=== PATIENT | male | born 1970 | race Caucasian/White ===

== ENCOUNTER 2023-09-14 04:23 | Outpatient (CLI) | payer OTHER, SELFPAY ==
[2023-09-14 16:04] LABS: HCT 47.3 % (40.0-50.0); HGB 15.8 g/dL (13.5-17.5); MCH 31.2 pg (27.0-33.0); MCHC 33.4 % (32.0-36.0); MCV 94 fL (80-95); MPV 9.7 fL (8.0-11.0); Platelet Count 285 10^3/uL (130-400); RBC 5.06 10^6/uL (4.36-5.78); RDW 13.9 % (11.8-14.1); RDW-SD 47.5 fL; WBC 7.11 10^3/uL (4.4-10.8)
[2023-09-14 16:42] LABS: Anion Gap 9.9 mmol/L (3-11); BUN 12 mg/dL (7-18); CO2 28.1 mmol/L (21.0-32.0); CREATININE 1.1 mg/dL (0.70-1.30); Calcium 9.2 mg/dL (8.5-10.1); Chloride 106 mmol/L (98-107); Estimated GFR 79.77 (mL/min/1.73m2); Glucose 86 mg/dL (74-106); Potassium 4.3 mmol/L (3.5-5.1); Sodium 144 mmol/L (136-145)
== END 2023-09-14 04:24 | disposition home or self-care (01) ==
LOC: LBO 04:24
PROVIDERS: PCP Family Medicine; Visit Provider Student in an Organized Health Care Education/Training Program
DX: M16.12 Unilateral primary osteoarthritis, left hip (principal); Z01.818 Encounter for other preprocedural examination
CPT/HCPCS: 36415; 80048; 85027

== ENCOUNTER 2023-09-14 15:12 | Outpatient (CLI) | payer OTHER, SELFPAY ==
--- NOTE | 2023-09-14 15:39 | DI.RAD_ITS ---
Exam(s) XR PELVIS AP EXAM: XR PELVIS AP CLINICAL HISTORY: THR Planning. TECHNIQUE: 2D digital imaging was performed. Single AP view. Template ball COMPARISON: CR XR HIP MIN 2V LT from 02/17/2022 FINDINGS: BONES: No acute fracture is present. No bony destructive lesion is seen. JOINTS: No dislocation present. Severe narrowing of the left hip joint space, with a [id number] ap pearance. Subchondral cysts in the superior femoral head and superior acetabulum. Periarticular spu rring. Mild flattening of the left femoral head. Mild narrowing of the right hip joint space and mi ld periarticular spurring. SOFT TISSUE: Vasectomy clips IMPRESSION: Severe changes of the left hip DATA REPOSITORY: RADIATION DOSE DELIVERED:
== END 2023-09-14 15:13 | disposition home or self-care (01) ==
LOC: DIORS 15:12
PROVIDERS: PCP Family Medicine; Visit Provider Physician Assistant
DX: M16.12 Unilateral primary osteoarthritis, left hip (principal)
CPT/HCPCS: 72170

== ENCOUNTER 2023-09-19 06:08 | Day surgery (SDC) | payer OTHER, SELFPAY ==
[2023-09-19] VITALS (26 sets, daily range): BP systolic 47–142; BP diastolic 20–96; PULSE 51–77; RESP 14–22; TEMP 36.1–36.6; O2SAT 95–100; BMI 33.5
[2023-09-19] MEDS: Acetaminophen 500 MG TAB 1000 MG PO (06:50)
[2023-09-19] MEDS: Celecoxib 200 MG CAP 400 MG PO (06:51)
--- NOTE | 2023-09-19 06:57 | W.ANESPRE ---
General Info Date of Service Date Performed: 09/19/23 Height: 5 ft 8 in Weight: 100.1 kg Body Mass Index (BMI): 33.5 Surgical Procedure: Operation Date: 09/19/23 07:50 Proposed Procedure Side Surgeon p Hip Total Hip Anterior, ACTIS Left Chucky Cherry MD Meds Allergies and Home Medications Allergies Allergy/AdvReac Type Severity Reaction Status Date / Time pollen extracts Allergy Unknown Other (See Verified 09/19/23 06:21 Comment) Home Medication ?Medication ?Instructions ?Recorded allopurinol 300 mg tablet 300 mg PO DAILY 06/28/22 bupropion HCl 300 mg 24 hr tablet, 300 mg PO QAM 06/28/22 extended release rosuvastatin 10 mg tablet 10 mg PO DAILY 06/28/22 losartan 50 mg tablet 50 mg PO DAILY 09/14/23 Current Visit Medications: Current Medications Generic Name Dose Route Start Last Admin Trade Name Freq PRN Reason Stop Dose Admin Acetaminophen 1,000 mg 09/19/23 06:00 09/19/23 06:50 Acetaminophen 500 Mg Tab PO 09/19/23 23:59 1,000 mg PREOP TAJ Administration Celecoxib 400 mg 09/19/23 06:00 09/19/23 06:51 Celecoxib 200 Mg Cap PO 09/19/23 23:59 400 mg PREOP TAJ Administration Ringer's Solution 1,000 mls @ 80 mls/hr 09/19/23 06:00 IV 09/19/23 23:59 INFUSION TAJ Cefazolin Sodium/Dextrose 2 gm in 50 mls @ 100 mls/hr 09/19/23 06:00 Ancef Duplex IVPB 09/19/23 23:59 PREOP TAJ Tranexamic Acid/Sodium Chloride 1,000 mg in 100 mls @ 600 mls/hr 09/19/23 06:00 IVPB 09/19/23 23:59 PREOP TAJ IV Miscellaneous Supplies 1 each 09/19/23 06:00 Iv Access IV 09/19/23 23:59 DIRECTED TAJ Sodium Chloride 0 ml 09/19/23 06:00 Normal Saline Flush 10 Ml Syr IV 09/19/23 23:59 PRN PRN Sodium Chloride 0 ml 09/19/23 06:00 Normal Saline 10 Ml Vial IJ 09/19/23 23:59 DIRECTED PRN Sterile Water 0 ml 09/19/23 06:00 Water,Injection,Sterile 10 Ml Vial IJ 09/19/23 23:59 DIRECTED PRN PFSH Active Problems Active Problems: Problem Status Onset Code Primary osteoarthritis of left hip Acute M16.12 Hyperlipidemia Acute E78.5 Hypertension Chronic I10 Medical History Medical History Gout Sleep apnea Surgical History Surgical History History of colonoscopy History of tonsillectomy History of vasectomy Tobacco Smoking/Tobacco Use Status: Former Tobacco Use Alcohol Alcohol Intake: current Alcohol intake frequency: a few times a week Substance Use Substance use: Never Substance use type: does not use Details: 5x day on weekends ETOH Vital Signs and Lab Results Vital Signs Most Recent Vital Signs in EMR: Most Recent Vital Signs Temp Pulse Resp BP Pulse Ox 36.5 C 65 16 142/96 H 97 09/19/23 06:24 09/19/23 06:24 09/19/23 06:24 09/19/23 06:24 09/19/23 06:24 Lab Results Blood Type / Crossmatch: No Data to Display Complete Blood Count: White Blood Count 7.11 10^3/uL (4.4-10.8) 09/14/23 15:55 Red Blood Count 5.06 10^6/uL (4.36-5.78) 09/14/23 15:55 Hemoglobin 15.8 g/dL (13.5-17.5) 09/14/23 15:55 Hematocrit 47.3 % (40.0-50.0) 09/14/23 15:55 Platelet Count 285 10^3/uL (130-400) 09/14/23 15:55 Complete Metabolic Panel: Sodium 144 mmol/L (136-145) 09/14/23 15:55 Potassium 4.3 mmol/L (3.5-5.1) 09/14/23 15:55 Chloride 106 mmol/L (98-107) 09/14/23 15:55 Carbon Dioxide 28.1 mmol/L (21.0-32.0) 09/14/23 15:55 BUN 12 mg/dL (7-18) 09/14/23 15:55 Creatinine 1.1 mg/dL (0.70-1.30) 09/14/23 15:55 Est GFR (CKD-EPI 2020) 79.77 (mL/min/1.73m2) 09/14/23 15:55 Calcium 9.2 mg/dL (8.5-10.1) 09/14/23 15:55 Glucose 86 mg/dL (74-106) 09/14/23 15:55 Liver Function Panel: No Data to Display Coagulation Panel: No Data to Display Cardiac Panel: No Data to Display Arterial Blood Gas: No Data to Display Venous Blood Gas: No Data to Display Pancreas Panel: No Data to Display Thyroid Panel: No Data to Display Infectious Disease: No Data to Display Blood Cultures: No Data to Display Toxicology Panel: No Data to Display Anesthesia Assessment and Plan Anesthesia History Personal History: No History of Anesthesia Complications Family History: No Family History of Anesthesia Complications Exercise Tolerance Exercise Tolerance: Metabolic Equivalents>4 Cardiac & Pulmonary Exam Cardiac Exam: Normal S1/S2 Heart Sounds Pulmonary Exam: Clear Bilateral Breath Sounds Implantable Cardiac Device Does patient have a Pacemaker or an ICD?: No Airway Exam Known Difficult Airway: No Mallampati Class: 2 Mouth Opening: Normal (> 3cm) Thyromental Distance: Greater than 3 cm Neck Range of Motion: Full ROM Neck Circumference: Thick Teeth Condition: Normal Dentition ASA Classification ASA Score: ASA 2 Emergency Case?: No NPO Status NPO Status: NPO Clears >2 hours, Solids >8 hours Anesthesia Plan Resuscitation Status: Full Code Anesthesia Technique: Spinal Anesthesia Airway Planned: Natural Airway Monitors Used: Standard Monitors
[2023-09-19] MEDS: Lactated Ringers 1,000 ML 80 ML IV (07:00)
--- NOTE | 2023-09-19 07:18 | W.PM.DS.N ---
Date of service: 09/19/23 Time of Service: 07:21 Discharge Plan Disposition Patient Disposition: Home Condition: Good Discharge Details Reason For Visit: Left hip DJD Attending Provider: Chucky Cherry Primary Care Provider: Mainor Stoll Home Meds and New Rx's Prescriptions: New celecoxib [Celebrex] 200 mg capsule 200 mg PO BID PRNQty: 60 0RF Rx Instructions: Take one tablet twice daily for pain and inflammation aspirin 81 mg tablet,delayed release (DR/EC) 81 mg PO BID 30 Days Qty: 60 0RF acetaminophen 500 mg tablet 1,000 mg PO Q8H PRN Qty: 90 0RF Rx Instructions: Take two tablets up to every 8 hours as needed for pain pantoprazole 40 mg tablet,delayed release (DR/EC) 40 mg PO DAILY Qty: 14 0RF dexamethasone 4 mg tablet 4 mg PO DAILY Qty: 2 0RF Rx Instructions: Take one tablet once daily for two days docusate sodium [Colace] 100 mg capsule 100 mg PO BID Qty: 30 0RF oxycodone 5 mg tablet 5 mg PO Q6H PRNQty: 12 0RF Rx Instructions: Take one tablet up to every 6 hours as needed for severe postoperative pain Continued losartan 50 mg tablet 50 mg PO DAILY allopurinol 300 mg tablet 300 mg PO DAILY bupropion HCl 300 mg tablet extended release 24 hr 300 mg PO QAM rosuvastatin 10 mg tablet 10 mg PO DAILY Discharge Instructions Additional Instructions: Total Hip Discharge Instructions Activity: The most important activity is to walk. You should try to take short walks a few times a day. You have no restrictions on movement or positioning, but do not try to force what you do. You will find some stiffness and weakness with hip flexion (lifting your knee). Do not try to strengthen this too early, continue to practice walking and stairs and this will come. - Outpatient physical therapy can be helpful to help return you to a normal gait and improve your flexibility and strength. This can start around 2 weeks. For some patients, it?s not necessary. Usually this is determined at the time of discharge or at the first post-operative visit. - You should wear the LUH hose on both legs for 2 weeks. Dressing: Keep the surgical dressing in place for at least one week. After the first week it may be removed and replace with light gauze and tape or nothing. It may get wet after 3 days but avoid soaking the dressing. If it gets wet, just lightly pat dry. It is important to always keep some gauze between skin folds, especially when you are sitting. Spend some time with the wound exposed when you are lying flat as the incision does wrinkle onto itself. Medications: - You should take Tylenol and an anti-inflammatory Celebrex as your primary pain control medications. If the Celebrex is too expensive or not covered, please call the office for another alternative (Advil/Ibuprofen or Naproxen/Aleve). - You have been prescribed a stronger pain medication Oxycodone for breakthrough pain, take as needed as prescribed. - You have also been prescribed a stomach acid reduction agent Pantoprozole to help reduce stomach acid and reflux. - You have also been prescribed Decadron to help with post-operative nausea and pain. You will take this for two days starting tomorrow. - You will be taking Aspirin 81mg twice a day for DVT prevention unless instructed otherwise. - If you have constipation you should take Colace (which has been prescribed) or Miralax (which is available [id number]). It takes most people 3-4 days to have a bowel movement. Follow-up: 2 weeks If you have any acute concerns or questions, please do not hesitate to contact the office at [phone]. You may contact Dr. Cherry with any questions after hours through the hospital at [phone] or on his cell phone at [phone]. Stand Alone Forms: Anesthesia Discharge InstBernie, Kiersten Mendoza (U) Referrals: Chucky Cherry MD [ [facility] ST[facility]FF [facility]YSICIAN] - 10/02/23 11:15 am Equipment/Supplies: Walker Activity:: Activity as Tolerated Remove Dressings/Wound Care:: Do Not Remove Shower/Bathe:: Cover Diet:: As Tolerated Discharge Orders Discharge Orders: Discharge Order (Routine); Ordered 09/19/23 Ordered By: Evette Leon Discharge Data Discharge Date/Time-TO BE ENTERED AT DEPARTURE: 09/19/23 13:25 DS: Summary Time Spent with Patient providing and/or coordinating discharge services: Less than 30 minutes Status at Discharge Functional status at discharge: uses cane/walker Overall status at discharge: patient is progressing back to baseline Mental Status: mental status grossly normal Speech and Movement: speech and movement normal Mood: congruent mood Affect: normal affect Quality:SDOH Health Related Social Needs: No Data to Display Exam Psych Mental Status: mental status grossly normal Speech and Movement: speech and movement normal Mood: congruent mood Affect: normal affect DS: Data Vitals/I&O Vitals and I&O: Vital Signs Temperature 97.7 F 09/19/23 06:24 Pulse 65 09/19/23 06:24 Pulse Rhythm Regular 09/19/23 06:24 Respiratory Rate 16 09/19/23 06:24 Respiratory Depth Normal 09/19/23 06:24 Blood Pressure 142/96 H 09/19/23 06:24 Pulse Oximetry 97 09/19/23 06:24 Oxygen Delivery Method Room Air 09/19/23 06:24 Oxygen Flow Rate 0 09/19/23 06:24 Pain Level 5 09/19/23 06:24 Intake & Output 09/18/23 09/18/23 09/19/23 11:59 23:59 11:59 Weight 220 lb 10.923 oz PFSH All Active Problems History of total left hip arthroplasty (Acute 09/19/23) Primary osteoarthritis of left hip (Acute) Hyperlipidemia (Acute) Hypertension (Chronic) Medical History Gout Sleep apnea Surgical History History of colonoscopy History of tonsillectomy History of vasectomy Social History Smoking/Tobacco Use Status: Former Tobacco Use Quit Date: 02/13/03 Smoking risk assessment performed?: Yes Alcohol Intake: current Alcohol Intake frequency: a few times a week Drug use: Never Substance use type: does not use Details: 5x day on weekends ETOH Housing: house Additional Social history: unable to assess privately Time Spent with Patient Time Spent with Patient: <45 minutes Time was spent: preparing to see the patient(eg.review tests), referring, communicating with other health medicare biller and counseling the patient
[2023-09-19] MEDS: ceFAZolin 2 GM/50 ML BAG IVPB (07:45)
[2023-09-19] MEDS: TRANEXAMIC ACID/SOD. CHL. 1,000 MG/100 ML BAG 600 MG IVPB (07:48)
--- NOTE | 2023-09-19 09:01 | DI.RAD_ITS ---
Exam(s) XR HIP LT IN OR EXAM: XR HIP LT IN OR CLINICAL HISTORY: left hip osteoarthritis. TECHNIQUE: 2D digital imaging was performed. COMPARISON: No exams were available for comparison FINDINGS: Fluoroscopy was provided intraoperatively during left hip arthroplasty. See procedure report for det ails. IMPRESSION: Radiation exposure index/cumulative dose:Yadiel= 5.4557 mGy DATA REPOSITORY: RADIATION DOSE DELIVERED:
[2023-09-19] MEDS: oxyCODONE 5 MG TAB PO (10:25)
--- NOTE | 2023-09-19 11:12 | ROE_ITS ---
Date of service: 09/19/23 Time of Service: 07:45 Operative Note Operative Note PRE-OP DIAGNOSIS: Left Hip Osteoarthritis POST-OP DIAGNOSIS: same PROCEDURE: Left Anterior Total Hip Arthroplasty with Intraoperative Navigation SURGEON: Chucky Cherry FOLLOW UP MANAGER: Evette Leon ANESTHESIA TYPE: Spinal Refer to Anesthesia Record ESTIMATED BLOOD LOSS: 150 PATHOLOGY: none sent TOURNIQUET TIME: 0 COMPLICATIONS: None Patient was transported to: PACU Patient's condition: stable Implants: 1. Depuy [place] Acetabular Component, 56mm 2. Depuy Acetabular Liner, 56x36+4mm 3. Depuy Actis High Offset Collared Femoral Stem, Size 4 4. Depuy Altrx Ceramic Femoral Head, Size 36+1.5mm Indications: I have seen Guzman in clinic for symptoms of hip arthritis, confirmed with radiographic findings. He has exhausted nonoperative methods and was having significant limitations in daily function and desired better function and less pain. I discussed the technical details of a hip replacement. I explained the risks of the procedure to include, but not limited to, bleeding, infection, pain, stiffness, fracture, damage to nerves and vessels, damage to muscles and tendons, loosening, instability, leg length inequality, need for repeat procedure, blood clot and cardiopulmonary demise. Despite these risks, Guzman elected to proceed. Findings: There was significant signs of arthritis throughout the hip with significant synovitis and osteophytes and irregularity throughout. Procedure Description: Guzman was greeted in the preoperative holding area where the correct side was identified and marked. The consent was reviewed with the patient and signed. The history and physical was updated. All questions were answered. He was taken back to the operating room. A spinal anesthestic was then administered. The feet were wrapped with cast padding and Coban and then placed into the boot liners and then into the boots. Care was taken to protect the skin and make sure the heels were fully down and the boots were stable. The patient was then positioned onto the HANA table. Both legs were held in a neutral position. SCDs were applied. The patient was then slid down onto a peroneal post. Prophylactic antibiotics in the form of Clindamycin were administered. 1g of Tranxemic Acid was given intravenously within 30 minutes of incision. The right leg was then prepped with Chloraprep and draped in a standard fashion. A second prep with Chloraprep was performed prior to placement of a shower-curtain type drape with Iodine impregnated skin protection. A timeout to confirm correct identity, side and site, procedure, allergies, anesthesia, and medical concerns was performed. An obliquely oriented incision was made starting lateral to the ASIS and running distal over the Tensor Fascia Noni (TFL) muscle belly toward the fibular head, approximately 10cm. The skin and soft tissue was dissected sharply, through Bartolo?s fascia, and to the fascia of the TFL. With the fascia and superior border of the IT band identified, the fascia was incised with a new knife just above any perforators from the IT band. The TFL muscle belly was bluntly dissected away from the fascia and moved laterally. The fat between TFL and rectus was identified to ensure the dissection was not within the TFL. Blunt dissection created space between abductors and the capsule and retractor was placed over the lateral femoral neck. The fibers of the rectus femoris tendon were identified and these were freed from the anterior capsule. A second cobra retractor was placed around the medial femoral neck. The TFL was further retracted laterally to show the deep fascia. Careful dissection through this layer identified three main crossing vessels of the lateral femoral circumflex. These were cauterized in multiple locations and then cut without any noticeable bleeding. The TFL was further released bluntly from the deep fascia to expose anterior hip capsule and fat A soft tissue orthopaedic retractor was then placed beneath the TFL and against sartorius and medial soft tissues to protect and retract the soft tissues. A T-capsulotomy was then performed starting at the superior lateral acetabulum and moving distally to the intertrochanteric ridge. These capsular flaps were tagged with a No. 1 Ethibond and elevated from within. The capsular flaps were released to the shoulder of the lateral neck and to the lesser trochanter to give excellent visualization of the proximal femur. A neck osteotomy was performed using an oscillating saw based on preoperative templates. This cut started in the shoulder and of the lateral neck and exited medially. The saw was at all times directed medially to avoid injury to the greater trochanter. Gross traction was applied to the leg and the osteotomy opened. The femoral head was removed with a corkscrew, making sure to protect the TFL on its exit. Traction was released after head removal. This was measured on the back table to determine the starting reamer size. Portions of the rectus obscuring visualization were minimally elevated off the superior acetabulum. An anterior retractor was placed over the anterior wall between capsule and labrum and attached to the Gripper retraction system. The femur was rotated to 90 degrees and medial capsule was fully released until the lesser trochanter was palpable and visible; the femur was returned to 30 degrees. A posterior retractor was placed similarly between capsule and labrum. This provided excellent visualization. The contents of the cotyloid fossa were removed with electrocautery and the labrum was removed with a knife. There was a notable floor osteophyte. There was significant chondromalacia of the superior acetabulum. Acetabular reaming began with a 50mm reamer. This first reaming was directed anterior to posterior and medial to get down to the true floor. This was inspected and reamed until the true floor was reached. The anterior retractor was then released and entry and exit was provided by traction on the capsular flaps. I then reamed sequentially up to a 56mm reamer where good fit was obtained. The larger reamers were oriented based on anatomical reference of the anterior and lateral hoang to ensure proper abduction and anteversion. Positioning and size was confirmed with the fluoroscopy. A 56mm Depuy [place] acetabular component was selected. The acetabulum was reamed around the periphery with the selected acetabular size to prevent a rim fit. The deep tissues were irrigated. The acetabular component was then impacted in a position of about 40-45 degrees of abduction and 15-20 degrees of anteversion, using the patient?s anatomy as the ultimate landmark. Fluoroscopy was used to confirm this. There was ex cellent executive business coach of the acetabular component and the inserting handle was removed. The acetabular liner, Depuy [id number] +4mm polyethylene liner, was inserted and lined up with the tines of the acetabular component. There was no soft tissue interposition. The liner was then impacted into position and confirmed to be well-seated. A portion of the yomi-articular cocktail was then injected around the acetabulum into the capsule and periosteum. This cocktail consisted of 123mg of Ropivacaine, 0.25mg of Epinephrine, 0.04mg of Clonidine, and 15mg of Ketorolac, diluted to 50cc. The leg was rotated to 120 degrees. Any remaining medial capsule was released until the lesser trochanter was easily palpable. A retractor was placed medially. The lateral capsule was further released into the shoulder to allow access to the greater trochanter. A Capps retractor was placed over the greater trochanter which allowed the trochanter to flip in front of the capsule for excellent exposure. The leg was brought down into maximal extension and 20 degrees of adduction while ensuring there was no impingement on the acetabulum. Any remnant capsule within the trochanter was released. Piriformis and obturator externis were identified and protected. There was excellent access to the proximal femur. The lateral neck remnant was removed with a rongeur. A blunt canal probe was used to identify the canal and trajectory for later broaching. A box osteotome initiated the broach course. A small curved rasp and a curved curette were used to work laterally. Broaching then began with a starter Actis broach. This was inserted manually around the trochanter and into the canal before mallet blows. The broach was seated to a few millimeters below the cut level based on the neck cut and the preoperative template. Sequential broaching was continued with the Thomas-Krennse pneumatic broaching device until a tight fit was obtained with good rotational control of the femur. A trial standard neck was inserted along with a +5 trial head. The leg was brought out of extension and adduction and then reduced with traction and internal rotation. The leg was stable anteriorly in a position of 30 degrees of extension and 90 degrees of external rotation. Fluoroscopy was used to ensure there was no fracture and the stem was seated well. Leg lengths were checked with an AP pelvis and pelvic reference points. [employer] navigation system was used to confirm appropriate positioning and leg length and offset. This over-corrected the leg length and under corrected offset, improved with goign up to high offset neck and advancing the stem. Once content with the desired offset and leg lengths, the leg was brought back into extension, external rotation and adduction. The periosteum and surrounding tissue was injected with remaining portion of the yomi-articular cocktail. The proximal femur was irrigated as well as the deep tissues. The Depuy Actis high offset collared stem, size 4, was then manually inserted into the proximal femur making sure to control rotation. It was then malleted into position with light blows, giving breaks to allow bone expansion and decrease risk of fracture. The selected Depuy Altrx Ceramic Head, size 36+1.5mm, was then placed onto the clean and dry trunnion and secured with impaction onto the tapered fit. The leg was brought back out of extension and adduction and reduced with traction and internal rotation. Stability was confirmed with no shuck at 90 degrees of external rotation and 30 degrees of extension. No impingement through range of motion arc. Final x-ray images were obtained with fluoroscopy to confirm adequate positioning and no intraoperative fracture. The deep tissues were thoroughly irrigated with Surgiphor, betadine solution. This was allowed to sit in the wound for 3 minutes before being thoroughly irrigated out with normal saline. The capsule was then reapproximated with the previously placed Ethibond sutures. The TFL fascia was finally closed with a No. 2 Stratafix, barbed suture. Deep tissues were then reapproximated with 0 Vicryl and a running 2-0 Vicryl. The skin was closed with a running 4-0 Monocryl in a subcuticular fashion. This was reinforced with skin glue. A Mepilex silver dressing was applied. At the end of the case, all counts were correct. Guzman was transferred to the hospital bed without difficulty and suffering no apparent complication. Guzman has a good prognosis. Physical therapy will start today and without restrictions, weight-bearing as tolerated. Aspirin 81mg BID will be used for DVT prophylaxis.
--- NOTE | 2023-09-19 13:05 | PT.INIE ---
Date of service: 09/19/23 Time of Service: 12:30 PT Notes Visit Reasons: Left hip DJD Date: 09/19/2023 Referring Doctor: Evette Leon PT Orders: PT CONSULT: S/p Ortho surgery Precautions: Standard Patient Profile/Admitting Diagnosis: 53-year-old male status post left THR, today. Prepping for DC home, with . Social History/Home Situation: Lives in a multilevel story home, 2 stairs to enter with rail on left. Intends to reside on main level, bedroom and bathroom access. 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 Equipment Owned/DME: None Subjective: When first attempting evaluation very dizzy, double vision. When returning dizziness resolved, left lateral thigh burning pain present, but anxious to return home now that he is feeling better. Objective: General Observation: First attempt - Found standing at toilet, dizzy, pale. Second attempt - lying comfortably in hospital bed, normal color returned. Mental Status: A and O x 3 Vital signs: First attempt: 60/40 BP Second attempt: Stable per nursing ROM: Right Upper Extremity: WNL Left Upper Extremity: WNL Right Lower Extremity: WNL Left Lower Extremity: knee and ankle WNL, L hip flex at least 90 deg stiff and painful with sitting. Strength: Right Upper Extremity: Grossly 5/5 Left Upper Extremity: Grossly 5/5 Right Lower Extremity: Grossly 5/5 Left Lower Extremity:At least 3/5 with limited functional movement post THR Bed Mobility/Transfers: Supine to EOB: Independent Sit to stand: Supervision, RW Stand to sit: Supervision, RW Bed to chair, vice versa: Supervision, RW Gait: RW, 50 ft, close supervision. Step to stair ambulation, up with good, down with bad education, use of bilateral rails, supervision. Balance: Static Sitting: Good Dynamic Sitting: Good Static Standing: Good with RW Dynamic Standing: Good with RW Informed Consent/Education: Patient instructed in purpose of PT consult and plan of care. Treatment: Initial evaluation [id number] Therapeutic Procedures: Skilled exercise prescription for ROM, strengthening, and flexibility specific to patients problem Review ROM/muscle activation exercises to include the following: Ankle pumps, quad sets, glutes sets, LAQ. Handout provided to patient. Education re: slow gait speed, step to pattern with stairs, use of rail, cautious movement, AROM of L LE to tolerance will offer pain alleviation, ambulation good to tolerance with RW. Assessment: Patient is a 53 year old male referred to physical therapy services S/P L THR today, w PT service required for AD instruction, HEP, and safety guidance for return home. Demonstrated understanding of use of RW, transfer mechanics, and safety precaution. demonstrates proper guarding and importance of cautious movement, she is appropriate to supervise. He is safe for discharge home with today. Demonstrated stable vitals and resolved dizziness post first sessions attempt, likely had bad reaction to pain meds. He will require RW to prevent falls, protect new surgery site and allow for proper healing and safe initial function. Understand to contact office at anytime with questions or concerns. Patient is assessed as low complexity based on the following: History: Minimal medical history, self employed lives with . Examination: impairment and functional limitations as noted above Presentation: Stable Decision Making: easy Plan of Care/Treatment Plan: DISCHARGE RECOMMENDATIONS: Discharge home wtih , outpatient PT per ortho recommendations. TREATMENT CODE/TIME: 10 min/ 15 min. [id number], [id number], [id number] Claudia Mon, MPT [facility]
--- NOTE | 2023-09-19 15:08 | W.ANESPOSTOP ---
Postoperative Evaluation Date, Time and Location Date Performed: 09/19/23 Time Performed: 12:15 Patient Location: Day Surgery Unit Vital Signs Most Recent Imported Vital Signs: Most Recent Vital Signs Temp Pulse Resp BP Pulse Ox 36.2 C L 57 L 16 95/59 L 98 09/19/23 12:45 09/19/23 12:45 09/19/23 12:45 09/19/23 12:45 09/19/23 12:45 Pain Score Most Recent Pain Score: Most Recent Pain Score Pain Level 5 09/19/23 12:10 Assessment Mental Status: Awake (Alert & Oriented to Patient Baseline) Airway and Respiratory Function: Patent airway with normal (patient baseline) respiratory exam Cardiovascular Function: Hemodynamically Stable (noted some hypotension, but not currently symptomatic and cuff pressure rechecked.) Hydration Status: Adequately Hydrated Nausea & Vomiting: No Nausea or Vomiting Pain: Pain is Moderate or Severe Postoperative Pain Management: Pain being addressed with medication Peripheral Nerve Block: Patient did not receive a nerve block
== END 2023-09-19 13:25 | disposition home or self-care (01) ==
PROVIDERS: PCP Family Medicine; Visit Provider Student in an Organized Health Care Education/Training Program
PROC: (CPT 27130; principal; 2023-09-19 07:30)
DX: M16.12 Unilateral primary osteoarthritis, left hip (principal); I10 Essential (primary) hypertension; E78.5 Hyperlipidemia, unspecified
CPT/HCPCS: 27130; 20985; 97161; 73501; C1776; J0690; J2001; J2250; J2401; J2405; J2704

== ENCOUNTER 2023-10-02 15:47 | Outpatient (CLI) | payer OTHER, SELFPAY ==
--- NOTE | 2023-10-02 11:41 | DI.RAD_ITS ---
Exam(s) XR HIP LT COMPLETE AP PELVIS EXAM: XR HIP LT COMPLETE AP PELVIS CLINICAL HISTORY: 1ST POST OP S/P L HIP. TECHNIQUE: 2D digital imaging was performed. Three images were obtained. AP, lateral and oblique vi ews were obtained. COMPARISON: CR XR PELVIS AP from 09/14/2023 XA XR HIP LT IN OR from 09/19/2023 FINDINGS: BONES: There are stable post operative changes of a left total hip replacement present. No fracture or dislocation. JOINTS: The orthopedic hardware is in good position. No evidence of hardware loosening. SOFT TISSUE: Normal. IMPRESSION: Stable left total hip replacement. DATA REPOSITORY: RADIATION DOSE DELIVERED:
== END 2023-10-02 15:48 | disposition home or self-care (01) ==
LOC: DIORS 15:47
PROVIDERS: PCP Family Medicine; Visit Provider Student in an Organized Health Care Education/Training Program
DX: Z96.642 Presence of left artificial hip joint (principal); Z47.1 Aftercare following joint replacement surgery
CPT/HCPCS: 73502

== ENCOUNTER 2024-06-05 09:01 | Outpatient (CLI) | payer OTHER, SELFPAY ==
--- NOTE | 2024-06-05 08:45 | DI.RAD_ITS ---
Exam(s) XR HIP RT COMPLETE AP PELVIS EXAM: XR HIP RT COMPLETE AP PELVIS CLINICAL HISTORY: RIGHT HIP PAIN. TECHNIQUE: 2D digital imaging was performed of the right hip. Four images were obtained. AP pelvis and lateral right hip views were obtained. COMPARISON: CR XR HIP LT COMPLETE AP PELVIS from 10/02/2023 FINDINGS: BONES: No acute fracture is present. No bony destructive lesion is seen. JOINTS: No dislocation present. The patient has a left total hip arthroplasty which appears stable co mpared to the prior examination. There is mild narrowing of the superior joint space of the right hi p. The sacroiliac joints and symphysis pubis are unremarkable. 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 SOFT TISSUE: There are surgical clips inferior to the pelvis suggesting prior vasectomy. 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 There is narrowing of the joint space of the right hip . DATA REPOSITORY: RADIATION DOSE DELIVERED:
== END 2024-06-05 09:02 | disposition home or self-care (01) ==
LOC: DIORS 09:01
PROVIDERS: PCP Family Medicine; Visit Provider Physician Assistant
DX: M25.551 Pain in right hip (principal); M24.851 Other specific joint derangements of right hip, not elsewhere classified; M46.1 Sacroiliitis, not elsewhere classified
CPT/HCPCS: 73502

== ENCOUNTER 2024-09-23 10:21 | Outpatient (CLI) | payer OTHER, SELFPAY ==
--- NOTE | 2024-09-23 07:45 | DI.RAD_ITS ---
Exam(s) XR HIP LT AP LAT ONLY EXAM: XR HIP LT AP LAT ONLY CLINICAL HISTORY: ANNUAL F/U L VAISHALI. TECHNIQUE: 2D digital imaging was performed. Two views. COMPARISON: No exams were available for comparison FINDINGS: BONES: No acute fracture is present. No bony destructive lesion is seen. Stable appearance of the left hip prosthesis JOINTS: No dislocation present. The SI joints and pubic symphysis are intact. No significant degenerative changes. SOFT TISSUE: Normal. IMPRESSION: Stable appearance of left hip prosthesis. DATA REPOSITORY: RADIATION DOSE DELIVERED:
== END 2024-09-23 10:22 | disposition home or self-care (01) ==
LOC: DIORS 10:21
PROVIDERS: PCP Family Medicine; Visit Provider Student in an Organized Health Care Education/Training Program
DX: Z96.642 Presence of left artificial hip joint (principal)
CPT/HCPCS: 73502